=== PATIENT | female | born 1955 | race Caucasian/White ===

== ENCOUNTER 2017-03-01 12:29 | Inpatient (IN) | payer SELFPAY ==
[2017-03-01 13:00] VITALS: BP 150/90
[2017-03-01] MEDS ORDERED: IV NS 0.9% 1,000 ML IV ONE (13:00)
[2017-03-01] MEDS ORDERED: NOREPINEPHRINE 16 MG in IV D5W 500 ML IV PRN ×7 (13:00→13:30)
== END 2017-03-02 01:12 | disposition left against medical advice (07) | DRG 392 ==
LOC: ICU 12:29
PROVIDERS: ADMIT Internal Medicine; ATTEND Legal Medicine
DX: R10.9 Unspecified abdominal pain (principal)